=== PATIENT | male | born 1940 | race Caucasian/White ===

== ENCOUNTER 2022-11-17 05:17 | Emergency (ER) | payer MEDICARE, BC, SELFPAY ==
[2022-11-17 05:20] VITALS: BP 178/80; PULSE 43; RESP 16; TEMP 36.5; O2SAT 99
--- NOTE | 2022-11-17 05:30 | DI.RAD_ITS ---
Exam(s) XR HAND RT COMPLETE EXAM: XR HAND RT COMPLETE CLINICAL HISTORY: pain s/p fall. TECHNIQUE: 2D digital imaging was performed. Three views. COMPARISON: No exams were available for comparison FINDINGS: BONES: The exam is somewhat limited by overlap of the fingers. No acute fracture is present. Chroni c appearing deformities at the bases of the 3rd and 4th metacarpals. No bony destructive lesion is s een. JOINTS: No dislocation present. Degenerative changes. SOFT TISSUE: Vascular calcifications. Soft tissue swelling and soft tissue air seen near the 5th met acarpal head. No foreign body. IMPRESSION: Soft tissue injury. No evidence of fracture. DATA REPOSITORY: RADIATION DOSE DELIVERED:
--- NOTE | 2022-11-17 05:30 | DI.CT_ITS ---
Exam(s) CT HEAD CERVICAL SPINE WO EXAM: CT HEAD CERVICAL SPINE WO CLINICAL HISTORY: fall on coumadin. TECHNIQUE: Imaging Protocol: Axial computed tomography images with coronal and sagittal reformatted images were created and reviewed COMPARISON: CT HEAD WITHOUT CONTRAST from 11/09/2013 FINDINGS: Head CT Ventricles and Extra axial spaces: Ventricles dilated secondary to atrophy.. Hemorrhage: None. Cerebral parenchyma: Prominent atrophy. White matter changes of small vessel disease. Midline shift: None. Brainstem/Cerebellum: Normal. Calvarium: Normal. Visualized Paranasal sinuses/Mastoids: Mucosal thickening maxillary sinuses. Cervical Spine CT BONES: Vertebral body heights are maintained. Alignment is normal. There is no evidence of acute frac ture. Degenerative disc changes and facet degenerative changes are seen . SOFT TISSUES: No paraspinal hematoma. The airway appears intact. No pneumothorax is seen at the lung apices. IMPRESSION: Head CT: Age related changes. No acute abnormality. C-spine CT: Degenerative changes, no acute abnormality. RADIATION DOSE DELIVERED: 1,599.84mGy.cm Total DLP DATA REPOSITORY: All CT scans at this facility are submitted to the National Radiology Data Registry (NRDR) Dose Index Registry (DIR) with the [employer] ([employer]). RADIATION OPTIMIZATION: All CT scans at this facility use at least one of these dose optimization te chniques: automated exposure control; mA and/or kV adjustment per patient size (includes targeted exa ms where dose is matched to clinical indication); or iterative reconstruction.
--- NOTE | 2022-11-17 05:34 | ED.GENADUL_ITS ---
Discharge Plan Disposition Patient Disposition: Home Condition: Stable Discharge Details Clinical Impression: Fall, Contusion of hand, right, Laceration of right hand, Blunt head trauma Primary Care Provider: None,None ED Provider: Lester Kinsey Home Meds and New Rx's Prescriptions: Continued allopurinol 100 MG tablet 150 mg PO DAILY levothyroxine [Synthroid] 25 MCG tablet 50 mcg PO DAILY tamsulosin 0.4 MG capsule 0.4 mg PO DAILY warfarin [Coumadin] 1 MG tablet 3.5 mg PO DAILY trazodone 50 mg Tablet 50 mg PO PRN PRN amlodipine 2.5 mg Tablet 2.5 mg PO DAILY Discharge Instructions Instructions: Contusion in Adults (ED) Additional Instructions: follow up with his primary care provider in 1-2 weeks if he has spreading redness from the wound, yellow/white discharge from the wound, severe pain return to the emergency department Medical Decision Making 82 yo male with hx of dementia cared for by his and afib on warfarin who comes in with cc of fall. provides all history due to patient's severe dementia. He stood up out of bed to use the bathroom and hit his right hand on the windowsill. He did not have loc but did hit his head on the floor. Pt arrives alert and in no distress but can't answer most questions other than his name. he has a 2cm laceration between the right pinky and ring finger on the dorsal aspect of the hand, is able to extend and flex at all the joints of the fingers. HE has no other signs of trauma elsewhere, or pain, no midline c/t/l spine tenderness, no chest or abdominal tenderness. He is not cooperative enough to allow primary repair of the wound and constantly pulls hand away, said they attempted a moh's skin procedure recently and patient could not tolerate the local. Will allow the wound to heal by secondary intention. Will obtain xray of the hand and also ct head/c spine and reassess. imaging unremarkable of the head, turn around times right now from [facility] for xrays is 3 hours, on my read of the hand xray quesetion a nondisplaced fracture of the phalanx between the mcp and pip joint of the first phalange, not near the actual lac. Discussed results with pt and . Discussed possible finger fx and discussed likely would not be surgical and even if it was she is not sure she'd want to proceed with surgical options for him at this time. He was placed in a oneil tape splint, and is stable for d/c, will f/u with his pcp, return precautions given Differential Diagnosis Differential Diagnosis: fracture, lac, tbi Medical Records Medical records reviewed: Yes I reviewed the patient's medical records. Imaging Data Radiologic Study: Attestation: I personally reviewed and interpreted this imaging study as follows: Imaging: CT Scan Radiologist's impression: no acute findings ct head/c spine HPI General Mode of arrival: ambulatory . Date/Time Provider Initiated Documentation: 11/17/22 05:18 . Limitations to Documentation: no limitations . Information obtained by: patient . History of Present Illness 82 year old M presents to the emergency department with the chief complaint of right hand laceration, described as moderate, and it has been constant. No relieving factors improve symptom(s), No exacerbating factors reported . Patient did receive the following treatments prior to arrival, none Related Data Home Medications Medication Instructions Recorded Confirmed allopurinol 100 mg tablet 150 mg PO DAILY 11/08/13 11/17/22 levothyroxine 25 mcg tablet 50 mcg PO DAILY 11/08/13 11/17/22 (Synthroid) tamsulosin 0.4 mg capsule 0.4 mg PO DAILY 11/08/13 11/17/22 warfarin 1 mg tablet (Coumadin) 3.5 mg PO DAILY 11/08/13 11/17/22 amlodipine 2.5 mg tablet 2.5 mg PO DAILY 11/17/22 11/17/22 trazodone 50 mg tablet 50 mg PO PRN PRN 11/17/22 11/17/22 Allergies Allergy/AdvReac Type Severity Reaction Status Date / Time No Known Allergies Allergy Unverified 11/17/22 05:26 General Stated Complaint: Laceration VERNON: 4 Review of Systems Unobtainable due to mental condition (dementia) PFSH All Active Problems (Updated 11/17/22 @ 05:58 by Lester Kinsey MD) Concussion (Acute 11/08/13) Atrial fibrillation (Chronic) On warfarin but not on any rate control agent. Prostatic hypertrophy (Chronic) On tamsulosin which the patient states has helped with his voiding. Hypothyroidism (Chronic) On Levothyroxine with no recent dose adjustments. Gout (Chronic) On Allopurinol. Fall (Acute) Contusion of hand, right (Acute) Laceration of right hand (Acute) Blunt head trauma (Acute) Social History Smoking/Tobacco Use Status: Former Tobacco Use Smoking risk assessment performed?: Yes Drug use: Never Exam Const General: no acute distress Orientation: alert HENMT Head: normal to inspection Ears: external ears normal General nose exam: external nose normal Mouth: moist mucous membranes Eyes General: appearance normal, both eyes and all related structures Neck Neck: normal visual inspection Resp Effort & Inspection: normal respiratory effort Cardio Rate: regular rate Skin General skin exam: no rashes or lesions noted Neuro General: patient alert Extrem General: full ROM and capillary refill normal Course Vital Signs Vital signs: Vital Signs Temperature 36.5 C 11/17/22 05:20 Pulse 43 L 11/17/22 05:20 Respiratory Rate 16 11/17/22 05:20 Blood Pressure 178/80 H 11/17/22 05:20 Pulse Oximetry 99 11/17/22 05:20 Temperature 36.5 C 11/17/22 05:20 Temperature Source Oral 11/17/22 05:20 Pulse 43 L 11/17/22 05:20 Respiratory Rate 16 11/17/22 05:20 Respiratory Effort Normal 11/17/22 05:20 Blood Pressure 178/80 H 11/17/22 05:20 Pulse Oximetry 99 11/17/22 05:20 Oxygen Delivery Method Room Air 11/17/22 05:20 Oxygen Flow Rate 0 11/17/22 05:20 Pain Level 0 11/17/22 05:20
--- NOTE | 2022-11-17 06:54 | NUR.NOTE ---
R hand cleaned with saline. steri strips applied. hand wrapped with conform wrap.Nursing Note:
--- NOTE | 2022-11-17 06:57 | DI.VRAD_ITS ---
PROCEDURE INFORMATION: Exam: CT Head Without Contrast Exam date and time: 11/17/2022 6:32 AM Age: 82 years old Clinical indication: Injury or trauma; Fall; Concussion/head injury; Without loss of consciousness; Injury details: Alzheimer's TECHNIQUE: Imaging protocol: Computed tomography of the head without contrast. Radiation optimization: All CT scans at this facility use at least one of these dose optimization techniques: automated exposure control; mA and/or kV adjustment per patient size (includes targeted exams where dose is matched to clinical indication); or iterative reconstruction. COMPARISON: No relevant prior studies available. FINDINGS: Brain: involutional changes of the brain parenchyma. Moderate low attenuation in the periventricular white matter. This is a nonspecific finding most commonly seen in setting of microvascular ischemic change. No evidence of acute infarct. No intraparenchymal hemorrhage. No midline shift or mass effect. No extra-axial fluid collections or hemorrhage. Cerebral ventricles: No ventriculomegaly. Pituitary gland and sella: Incidental finding of empty sella turcica. Paranasal sinuses: Mild mucosal thickening in bilateral maxillary sinuses. Mastoid air cells: Visualized mastoid air cells are well aerated. Bones/joints: Unremarkable. No acute fracture. Soft tissues: Unremarkable. Other findings: Marked IMPRESSION: No evidence of acute intracranial abnormality. PROCEDURE INFORMATION: Exam: CT Cervical Spine Without Contrast Exam date and time: 11/17/2022 6:32 AM Age: 82 years old Clinical indication: Injury or trauma; Fall; Concussion/head injury; Without loss of consciousness; Injury details: Alzheimer's TECHNIQUE: Imaging protocol: Computed tomography of the cervical spine without contrast. Radiation optimization: All CT scans at this facility use at least one of these dose optimization techniques: automated exposure control; mA and/or kV adjustment per patient size (includes targeted exams where dose is matched to clinical indication); or iterative reconstruction. COMPARISON: No relevant prior studies available. FINDINGS: Bones/joints: No acute or suspicious osseous abnormalities. Moderate to severe multilevel degenerative changes of the cervical spine, with findings including disc space narrowing, uncovertebral hypertrophy, facet arthropathy, marginal osteophytes, and posterior disc osteophyte complexes, greatest at C5-C6. Lungs: Lung apices are normal. Soft tissues: Unremarkable. IMPRESSION: 1. No evidence of acute fracture or subluxation of the cervical spine. 2. No evidence of acute fracture or subluxation of the cervical spine. Dictated and Authenticated by: Arabella Miller MD. Ordering:MAGGIE Batista MD
[2022-11-17 07:10] VITALS: BP 165/90; PULSE 65; RESP 18; O2SAT 100
--- NOTE | 2022-11-17 09:21 | DI.VRAD_ITS ---
PROCEDURE INFORMATION: Exam: XR Right Hand Exam date and time: 11/17/2022 6:39 AM Age: 82 years old Clinical indication: Injury or trauma; Fall; Sprain or strain; Hand; Right TECHNIQUE: Imaging protocol: Radiologic exam of the right hand. 3image(s) are provided. Views: 3 or more views. COMPARISON: No relevant prior studies available. FINDINGS: Bones/joints: There are chronic appearing degenerative changes of the carpal level as well as at the 1st carpometacarpal junction predominantly with maintained overall carpal alignment. There is some chondrocalcinosis demonstrated at the radiocarpal junction. Osseous alignment is maintained.No displaced fracture or dislocation is appreciated. There is some questionable edema or laceration type injury about the 4th and 5th digits on the oblique view. There is some chronic carpal level calcification present. There is radiocarpal level narrowing. There is some questionable cortical irregularity about the 5th digit proximal phalanx shaft on the frontal view. Consider overall if there is localized point tenderness. There is also chronic spurring and chronic calcific appearance about the proximal interphalangeal joint of the 5th digit and could also be seen with previous injury related sequela. Soft tissues: There is slight prominence of the soft tissues overall. No radiopaque foreign body or subcutaneous emphysema is appreciated. Vasculature: There are atherosclerotic vascular calcifications present. Other findings: The patient is slightly rotated. IMPRESSION: There is soft tissue swelling most pronounced about the 4th and 5th digits with questionable laceration. There is some cortical irregularity suggestive of nondisplaced fracture of the proximal phalanx shaft of the 5th digit as well as some overall chronic appearing irregularity of the proximal interphalangeal joint level. Dictated and Authenticated by: Bucky Avery MD. Ordering:MAGGIE Batista MD
== END 2022-11-17 07:14 | disposition home or self-care (01) ==
LOC: ER 07:21
PROVIDERS: Emergency Provider Emergency Medicine
DX: S61.226A Laceration with foreign body of right little finger without damage to nail, initial encounter (principal); W06.XXXA Fall from bed, initial encounter; W22.8XXA Striking against or struck by other objects, initial encounter; S61.214A Laceration without foreign body of right ring finger without damage to nail, initial encounter
CPT/HCPCS: 99284; 70450; 72125; 73130; 99283